=== PATIENT | female | born 1970 | race Caucasian/White ===

== ENCOUNTER 2025-03-24 20:31 | Emergency (ER) | payer OTHER ==
[~2025-03-24] VITALS: Ht 160 cm; Wt 58.6 kg
[2025-03-24 20:34] VITALS: O2SAT 100
[2025-03-24 21:32] LABS: BASOPHILS % 1.0 % (0.0-2.0); EOSINOPHILS % 1.5 % (0.0-5.0); HEMATOCRIT. 39.9 % (36.0-48.0); HEMOGLOBIN. 13.3 g/dL (12.0-16.0); LYMPHOCYTES % 55.6 % (20.0-50.0); MEAN PLATELET VOLUME 8.0 fl (7.4-10.4); MONOCYTES % 7.7 % (2.0-8.0); NEUTROPHILS % 34.2 % (40.0-76.0); PLATELET 314 x1000/uL (130-400); RED BLOOD CELL COUNT 4.51 mill/uL (4.2-5.4); RED CELL DISTRIBUTION WIDTH 13.4 % (11.6-14.6)
[2025-03-24 21:45] LABS: INR 1.1
[2025-03-24 21:52] LABS: CREATININE 0.9 mg/dL (0.6-1.0); UREA NITROGEN BLOOD 13 mg/dL (9-23)
[2025-03-24 21:54] LABS: TROPONIN I HIGH SENSITIVITY 8 ng/L (3.0-34)
[2025-03-24] MEDS: SODIUM CHLORIDE 0.9% 1,000 ML IV ONE (22:25)
[2025-03-25] MEDS ORDERED: IOHEXOL-350 100 ML BOTTLE ONE
[2025-03-25 00:36] VITALS: BP 104/56; PULSE 69; RESP 14; TEMP 36.5; O2SAT 100
== END 2025-03-25 00:39 | disposition home or self-care (01) ==
LOC: ER 20:31
DX: R07.89 Other chest pain (principal); R06.02 Shortness of breath; R42 Dizziness and giddiness; Z78.0 Asymptomatic menopausal state; Z98.82 Breast implant status
CPT/HCPCS: 99285; 96360; 71275; 71045; 80048; 83880; 85025; 85379; 85610; 85730; 84484; 36415; 93005; J7030; Q9967